=== PATIENT | male | born 1965 | race Caucasian/White ===

== ENCOUNTER → 2016-04-28 | Outpatient (CLI) | payer OTHER ==
--- NOTE | 2016-04-28 15:43 | MR ---
EXAMINATION TYPE: MR knee RT wo con DATE OF EXAM: 04/28/2016 7:43 AM COMPARISON: NONE HISTORY: Right knee pain TECHNIQUE: Multiplanar, multisequence imaging of the right knee is performed without IV contrast. FINDINGS: MEDIAL MENISCUS: Anterior and posterior horns are intact without tear. LATERAL MENISCUS: Anterior and posterior horns are intact without tear. CRUCIATE LIGAMENTS: The anterior and posterior cruciate ligaments are intact and unremarkable. COLLATERAL LIGAMENTS: The medial collateral ligament and lateral collateral ligament complex are inta ct and unremarkable. EXTENSOR MECHANISM: Visualized quadriceps and patellar tendons are intact. EFFUSION: No significant suprapatellar joint effusion. POPLITEAL CYST: No popliteal/yanez cyst. TRICOMPARTMENT SPACES: There is thinning of the articular cartilage of the patellofemoral joint space . No chondromalacia is identified. CARTILAGE: Thinning at the patellofemoral compartment is present. Remaining cartilage appears intact and normal BONE MARROW SIGNAL: No focal abnormal marrow signal is appreciated. OTHER: No additional significant abnormality is appreciated. IMPRESSION: 1. Essentially unremarkable MRI knee. 2. Minimal degenerative change at the patellofemoral compartment may be present.
--- NOTE | 2016-04-28 15:46 | MR ---
EXAMINATION TYPE: MR knee LT wo con DATE OF EXAM: 04/28/2016 7:42 AM COMPARISON: NONE HISTORY: Left knee pain TECHNIQUE: Multiplanar, multisequence imaging of the left knee is performed without IV contrast. FINDINGS: MEDIAL MENISCUS: Anterior and posterior horns are intact without tear. LATERAL MENISCUS: Anterior and posterior horns are intact without tear. CRUCIATE LIGAMENTS: The anterior and posterior cruciate ligaments are intact and unremarkable. COLLATERAL LIGAMENTS: The medial collateral ligament and lateral collateral ligament complex are inta ct and unremarkable. EXTENSOR MECHANISM: Visualized quadriceps and patellar tendons are intact. EFFUSION: Minimal joint effusion may be present. POPLITEAL CYST: Tiny popliteal cyst measuring 0.5 cm may be present from the medial aspect of the kaushal int. TRICOMPARTMENT SPACES: Tricompartment spaces are preserved. CARTILAGE: Intact. BONE MARROW SIGNAL: No focal abnormal marrow signal is appreciated. OTHER: No additional significant abnormality is appreciated. IMPRESSION: 1. Tiny popliteal cyst. 2. Minimal joint effusion
== END | disposition home or self-care (01) ==
LOC: RADMRIMAIN 06:43
PROVIDERS: ATTEND Family Medicine
DX: M71.22 Synovial cyst of popliteal space [Baker], left knee (principal); M25.462 Effusion, left knee

== ENCOUNTER → 2023-10-24 | Outpatient (CLI) | payer OTHER ==
--- NOTE | 2023-10-24 11:49 | XR ---
EXAMINATION TYPE: XR cervical spine comp DATE OF EXAM: 10/24/2023 11:43 AM INDICATION: Patient age:Male; 58 years old; Reason for study: M54.2 CERVICALGIA; [facility]. COMPARISON: None TECHNIQUE: The cervical spine was imaged in frontal, lateral, bilateral oblique, and odontoid project ions. FINDINGS: The osseous structures show normal alignment without evidence of an acute fracture. Surgical changes with anterior cervical fusion and disc fusion cages involving C5-C7. There is complete fusion of thes e vertebral bodies. Hardware appears intact. Multilevel degenerative disc disease with disc space yevgeniy rowing, endplate sclerosis, and anterior osteophytosis of the remaining cervical levels. Pedicles are intact. Bilateral neural foraminal stenosis at C5-C7 levels. Soft tissues are within normal limits. The odontoid appears intact. IMPRESSION: 1. No fracture or dislocation. 2. Postsurgical changes from ACDF C5-C7 with complete fusion. 3. Mild to moderate multilevel degenerative disc disease.
== END | disposition home or self-care (01) ==
LOC: RADXRMAIN 11:17
PROVIDERS: ATTEND Family Medicine
DX: M54.2 Cervicalgia
CPT/HCPCS: 72050